=== PATIENT | female | born 1945 | race Caucasian/White ===

== ENCOUNTER 2018-07-18 18:43 | Emergency (ER) | payer MEDICARE ==
[~2018-07-18] VITALS: Ht 175.3 cm; Wt 68.0 kg
[2018-07-18] MEDS ORDERED: OXYCODONE PO (18:54)
--- NOTE | 2018-07-18 19:03 | NUR ---
PT A/OX4, RESPONSIVE TO VERBAL AND TACTILE STIMULI. PT C/O PAIN IN L FOOT PAIN THAT STARTED 2 DAYS AGO, PROVOKED UPON MOVEMENT, SHARP IN QUALITY, DOES NOT RADIATE, 05/21, CONSTANT. L FOOT IS HOT TO TOUCH. PT STATES SHE PRICKED HERSELF WITH A SAFETY PIN NEAR THE L ACHILLES TENDON TO RELIEVE SOME DRAINAGE ON 07/17/18. SINCE THEN, THE DRAINAGE HAS BEEN YELLOW AND CLOUDY IN APPEARANCE. PT DENIES C/P, SOB, N/V/D, DIZZINESS, HEADACHE.
[2018-07-18 19:38] LABS: BASOPHILS # (AUTO) 0.1 K/uL (0.0-8.0); BASOPHILS % (AUTO) 0.6 % (0.0-2.0); EOSINOPHILS # (AUTO) 0.3 K/uL (0.0-0.7); EOSINOPHILS % (AUTO) 2.4 % (0.0-7.0); HEMATOCRIT 42.9 % (31.2-41.9); HEMOGLOBIN 14.3 g/dL (10.9-14.3); LYMPHOCYTES # (AUTO) 2.9 K/uL (20.0-40.0); LYMPHOCYTES % (AUTO) 24.2 % (20.5-51.5); MEAN CORPUSCULAR HEMOGLOBIN 31.7 uug (24.7-32.8); MEAN CORPUSCULAR HGB CONC 33 g/dL (32.3-35.6); MEAN CORPUSCULAR VOLUME 94.9 fL (75.5-95.3); MONOCYTES # (AUTO) 1.2 K/uL (2.0-10.0); MONOCYTES % (AUTO) 10.2 % (0.0-11.0); NEUTROPHILS # (AUTO) 7.5 K/uL (1.8-8.9); NEUTROPHILS % (AUTO) 62.6 % (38.5-71.5); PLATELET COUNT (AUTO) 465 K/uL (179-408); RED BLOOD CELL COUNT(AUTO) 4.52 MIL/uL (3.63-4.92); WHITE BLOOD COUNT (AUTO) 11.9 K/uL (3.8-11.8)
[2018-07-18 19:49] LABS: CARBON DIOXIDE 28 mmol/L (21-32); CHLORIDE 104 mmol/L (98-107); GLUCOSE 101 mg/dL (74-106); POTASSIUM 3.7 mmol/L (3.5-5.1); UREA NITROGEN, BLOOD 26 mg/dL (7-18)
--- NOTE | 2018-07-18 20:55 | NUR ---
Patient discharged to home in stable conditon. Written and verbal after care instructions given. Patient verbalizes understanding of instructions. PT D/C W/ PRESCRIPTION. PT'S ANKLE WRAPPED W/ GAUZE FOR DRAINAGE. PT ESCORTED OUT TO FAMILY MEMBER'S PRIVATE VEHICLE VIA W/C BY RN. ALL BELONGINGS W/ PT.
[2018-07-18 20:56] VITALS: BP 112/72
== END 2018-07-18 20:58 | disposition home or self-care (01) ==
LOC: ER 18:43
DX: T81.49XA Infection following a procedure, other surgical site, initial encounter (principal)
CPT/HCPCS: 36415; 73610; 83605; 85025; 85651; 87040; A4663